=== PATIENT | male | born 1975 | race African-American/Black ===

== ENCOUNTER 2017-10-18 14:59 | Emergency (ER) | payer MEDICAID ==
[~2017-10-18] VITALS: Ht 177.8 cm; Wt 85.8 kg
[2017-10-18 15:19] VITALS: BP 146/89
[2017-10-18 16:40] LABS: HIV 1&2 ANTIBODY SCREEN Nonreactive (Nonreactive); HIV-1 p24 ANTIGEN Nonreactive (Nonreactive)
== END 2017-10-18 16:09 | disposition home or self-care (01) ==
LOC: ED 15:45
DX: J20.8 Acute bronchitis due to other specified organisms (principal); B96.89 Other specified bacterial agents as the cause of diseases classified elsewhere
CPT/HCPCS: 36415; 71020; 86703; 87899; 99285; G0435

== ENCOUNTER 2017-10-19 15:42 | Emergency (ER) | payer MEDICAID ==
[~2017-10-19] VITALS: Ht 177.8 cm; Wt 86.5 kg
[2017-10-19 15:47] VITALS: BP 153/89
== END 2017-10-19 16:57 | disposition home or self-care (01) ==
LOC: ED 16:51
DX: B96.89 Other specified bacterial agents as the cause of diseases classified elsewhere (principal); Z76.0 Encounter for issue of repeat prescription; J20.8 Acute bronchitis due to other specified organisms; F17.210 Nicotine dependence, cigarettes, uncomplicated
CPT/HCPCS: 99283

== ENCOUNTER 2018-10-28 09:31 | Emergency (ER) | payer MEDICAID ==
[~2018-10-28] VITALS: Ht 175.3 cm; Wt 95.0 kg
[2018-10-28] MEDS ORDERED: DEXAMETHASONE 4 MG TABLET ONE (10:27)
[2018-10-28] MEDS ORDERED: DEXAMETHASONE 4 MG/ML, 1ML PO ONE (10:30)
== END 2018-10-28 11:06 | disposition home or self-care (01) ==
LOC: ED 09:37
DX: J02.0 Streptococcal pharyngitis (principal); F17.200 Nicotine dependence, unspecified, uncomplicated
CPT/HCPCS: 87880; 99283; J1100

== ENCOUNTER 2019-01-13 00:55 | Emergency (ER) | payer MEDICAID ==
[~2019-01-13] VITALS: Ht 180.3 cm; Wt 92.3 kg
[2019-01-13 00:59] VITALS: BP 154/89
--- NOTE | 2019-01-13 02:11 | NUR ---
RECEIVED REPORT FROM ELI TEJADA. CHART UP FOR RECHECK AT THIS TIME.
== END 2019-01-13 02:21 | disposition home or self-care (01) ==
LOC: ED 01:55
DX: J06.9 Acute upper respiratory infection, unspecified (principal); B34.9 Viral infection, unspecified
CPT/HCPCS: 71046; 99281; 99283